=== PATIENT | female | born 1970 | race Caucasian/White ===

== ENCOUNTER 2017-02-02 13:00 | Emergency (ER) | payer SELFPAY ==
[~2017-02-02] VITALS: Ht 162.6 cm; Wt 56.2 kg
[2017-02-02 14:21] LABS: HEMATOCRIT 45.3 % (36.0-46.0); MCH 31.8 PG (29.0-34.0); MCV 93.6 FL (83-99); MEAN PLAT.VOLUME 9.3 uM^3 (9.5-12.4); PLATELET COUNT 272 K/uL (156-360); RBC DIS.WIDTH-CV 12.2 % (11.8-14.6); RBC DIS.WIDTH-SD 42.5 % (39-53); RED BLOOD COUNT 4.84 M/uL (3.80-5.20); WHITE BLOOD COUNT 6.4 K/uL (4.1-10.2)
[2017-02-02 14:30] LABS: CHLORIDE 106 mEq/L (99-109); SODIUM 142 mEq/L (136-147)
[2017-02-02 14:31] LABS: GLUCOSE 104 mg/dL (70-99)
[2017-02-02 14:33] LABS: ANION GAP 10 MEQ/L (2-14)
[2017-02-02 14:35] LABS: GFR ESTIMATE (CALCULATED) > 59 mL/min/
[2017-02-02 14:36] LABS: UREA NITROGEN (BUN) 9 mg/dL (9-23)
[2017-02-02 14:41] LABS: TROP-I INTERPRETATION NEGATIVE; TROPONIN-I < 0.01 ng/mL (0.0-0.30)
[2017-02-02] MEDS ORDERED: NORCO 5/3251 TABLET PO (15:14)
[2017-02-02] MEDS ORDERED: MOTRIN600 MG PO (15:14)
[2017-02-02] MEDS ORDERED: VENTOLIN HFA18 GM IH (15:14)
[2017-02-02 15:36] VITALS: BP 141/69
== END 2017-02-02 15:37 | disposition home or self-care (01) ==
LOC: EME 13:00
DX: R09.1 Pleurisy (principal); J06.9 Acute upper respiratory infection, unspecified; F17.200 Nicotine dependence, unspecified, uncomplicated
CPT/HCPCS: 71020; 80048; 84484; 85027; 93005; 94640; 99281; 99283